=== PATIENT | male | born 1990 | race African-American/Black ===

== ENCOUNTER 2016-04-05 03:27 | Emergency (ER) | payer SELFPAY ==
[~2016-04-05] VITALS: Ht 172.7 cm; Wt 113.4 kg
--- NOTE | 2016-04-05 03:58 | PHYS DOC ---
Past Medical History Past Medical History: Schizophrenia Past Surgical History: No Surgical History Alcohol Use: Occasionally Drug Use: Cocaine, Marijuana Adult General Chief Complaint Chief Complaint: ALCOHOL INTOXICATION HPI HPI This is a 25-year-old male with known history of schizophrenia but no other significant past medical history presents after having what he states to be multiple it's of vodka and 2 beers, marijuana and cocaine just prior to arrival. Patient states he just recently started using marijuana this week. He states tonight after having his alcohol he developed some significant shortness of breath and feeling as though he may . Currently he states he feels improved and is in no distress at this time. He is speaking in complete sentences and in no acute distress. He denies any suicidal or homicidal ideation. Review of Systems Review of Systems Constitutional: Denies fever or chills [] Eyes: Denies change in visual acuity, redness, or eye pain [] HENT: Denies nasal congestion or sore throat [] Respiratory: Denies cough, has shortness of breath [] Cardiovascular: No additional information not addressed in HPI [] GI: Denies abdominal pain, nausea, vomiting, bloody stools or diarrhea [] : Denies dysuria or hematuria [] Musculoskeletal: Denies back pain or joint pain [] Integument: Denies rash or skin lesions [] Neurologic: Denies headache, focal weakness or sensory changes [] Endocrine: Denies polyuria or polydipsia [] Current Medications Current Medications Current Medications Medications (Trade) Dose Ordered Sig/Danita Start Time Stop Time Status Last Admin Dose Admin Multivitamins/ Minerals/Folic Acid/Thiamine HCl/ Sodium Chloride (Infuvite Adult/ Iv Sodium Chloride 0.9% 1000ml Bag) 1,011.2 ml @ 1,000 mls/ hr 1X ONCE 04/05/16 04:00 04/05/16 05:00 DC 04/05/16 04:07 1,000 MLS/HR Allergies Allergies Allergies Coded Allergies Type Severity Reaction Last Updated Verified No Known Drug Allergies 12/06/13 No Physical Exam Physical Exam Constitutional: Well developed, well nourished, no acute distress, non-toxic appearance. [] HENT: Normocephalic, atraumatic, bilateral external ears normal, oropharynx moist, no oral exudates, nose normal. [] Eyes: PERRLA, EOMI, conjunctiva normal, no discharge. [] Neck: Normal range of motion, no tenderness, supple, no stridor. [] Cardiovascular:Heart rate tachycardic with regular rhythm, no murmur [] Lungs & Thorax: Bilateral breath sounds clear to auscultation [] Abdomen: Bowel sounds normal, soft, no tenderness, no masses, no pulsatile masses. [] Skin: Warm, dry, no erythema, no rash. [] Back: No tenderness, no CVA tenderness. [] Extremities: No tenderness, no cyanosis, no clubbing, ROM intact, no edema. [] Neurologic: Alert and oriented X 3, normal motor function, normal sensory function, no focal deficits noted. [] Psychologic: Affect normal, judgement normal, mood normal. [] Current Patient Data Vital Signs Vital Signs Date Time Temp Pulse Resp B/P Pulse Ox O2 Delivery O2 Flow Rate FiO2 04/05/16 04:30 114 14 140/78 97 Room Air 04/05/16 03:29 98.2 98.2 Lab Values Laboratory Tests Test 04/05/16 03:50 04/05/16 04:00 White Blood Count 5.8x10^3/uL (4.0-11.0) Red Blood Count 5.41x10^6/uL (4.30-5.70) Hemoglobin 14.5g/dL (13.0-17.5) Hematocrit 43.1% (39.0-53.0) Mean Corpuscular Volume 80fL (79-100) Mean Corpuscular Hemoglobin 27pg (25-35) Mean Corpuscular Hemoglobin Concent 34g/dL (31-37) Red Cell Distribution Width 15.3% (11.5-14.5) H Platelet Count 343x10^3/uL (140-400) Neutrophils (%) (Auto) 60% (31-73) Lymphocytes (%) (Auto) 30% (24-48) Monocytes (%) (Auto) 8% (0-9) Eosinophils (%) (Auto) 0% (0-3) Basophils (%) (Auto) 1% (0-3) Neutrophils # (Auto) 3.5x10^3uL (1.8-7.7) Lymphocytes # (Auto) 1.8x10^3/uL (1.0-4.8) Monocytes # (Auto) 0.5x10^3/uL (0.0-1.1) Eosinophils # (Auto) 0.0x10^3/uL (0.0-0.7) Basophils # (Auto) 0.0x10^3/uL (0.0-0.2) Sodium Level 140mmol/L (136-145) Potassium Level 3.4mmol/L (3.5-5.1) L Chloride Level 102mmol/L (98-107) Carbon Dioxide Level 24mmol/L (21-32) Anion Gap 14 (6-14) Blood Urea Nitrogen 7mg/dL (8-26) L Creatinine 1.4mg/dL (0.7-1.3) H Estimated GFR (Cockcroft-Gault) 75.3 Glucose Level 104mg/dL (70-99) H Calcium Level 9.3mg/dL (8.5-10.1) Troponin I Quantitative < 0.017ng/mL (0.000-0.055) Salicylates Level < 2.8mg/dL (2.8-20.0) L Salicylate Last Dose Date Salicylate Last Dose Time Acetaminophen Level < 2mcg/ml (10-30) L Acetaminophen Last Dose Date Acetaminophen Last Dose Time Ethyl Alcohol Level < 10mg/dL (0-10) Urine Opiates Screen Neg (NEG) Urine Methadone Screen Neg (NEG) Urine Barbiturates Neg (NEG) Urine Phencyclidine Screen Neg (NEG) Urine Amphetamine/Methamphetamine Neg (NEG) Urine Benzodiazepines Screen Neg (NEG) Urine Cocaine Screen Pos (NEG) Urine Cannabinoids Screen Pos (NEG) Urine Ethyl Alcohol Neg (NEG) Laboratory Tests 04/05/16 03:50 Laboratory Tests 04/05/16 03:50 EKG EKG EKG as interpreted by me shows a sinus tachycardia with a rate of 123 bpm. There are no acute ST findings. There are no obvious signs of ischemia on this EKG. Radiology/Procedures Radiology/Procedures [] Course & Med Decision Making Course & Med Decision Making Pertinent Labs and Imaging studies reviewed. (See chart for details) 25-year-old male who has significant coingestion of marijuana, ethanol and cocaine will be given a banana bag and will have full laboratory workup drawn. At this time, his EKG shows a sinus tachycardia but no other acute findings. He' ll be observed in the department for several hours and reassessed multiple times. I counseled him at length that he must stop abusing drugs and alcohol and he is understanding of this. Laboratory workup is unremarkable. His urine does indicate evidence of cocaine and marijuana. Serum ethanol level was less than 10. He was given a banana bag and his tachycardia essentially resolved. His pulse ox is 99% on room air. I'll be discharging him home in of instructing him to avoid any illicit drug use and to follow up closely with his primary doctor. He states he feels much improved upon my final assessment and is very agreeable to this plan. His symptoms are likely cocaine induced. Dragon Disclaimer Dragon Disclaimer This electronic medical record was generated, in whole or in part, using a voice recognition dictation system. Departure Departure Impression: Primary Impression: Cocaine abuse Additional Impression: Marijuana abuse Disposition: 01 HOME, SELF-CARE Admitting Physician: Other Condition: STABLE Patient Instructions: Cocaine Abuse-Brief Additional Instructions: Please avoid abusing any drugs and avoid taking cocaine. Continue to drink plenty of fluids and rest. Return to the ER if you develop any worsening of your symptoms. Follow up with your primary doctor in the next 1-2 if your symptoms should persist. Problem Qualifiers SUZETTE SNIDER DO Apr 05, 2016 03:58
[2016-04-05 04:00] LABS: BASO % 1 % (0-3); EOS % 0 % (0-3); HEMATOCRIT 43.1 % (39.0-53.0); HEMOGLOBIN 14.5 g/dL (13.0-17.5); LYMPH # 1.8 x10^3/uL (1.0-4.8); LYMPH % 30 % (24-48); MEAN CORPUSCULAR HEMOGLOBIN 27 pg (25-35); MEAN CORPUSCULAR HGB CONC 34 g/dL (31-37); MEAN CORPUSCULAR VOLUME 80 fL (79-100); MONO % 8 % (0-9); NEUT % 60 % (31-73); PLATELET COUNT 343 x10^3/uL (140-400); RED BLOOD COUNT 5.41 x10^6/uL (4.30-5.70); RED CELL DISTRIBUTION WIDTH 15.3 % (11.5-14.5); WHITE BLOOD COUNT 5.8 x10^3/uL (4.0-11.0)
[2016-04-05] MEDS ORDERED: MVI, ADULT NO.4 WITH VIT K 10 ML, FOLIC ACID 1 MG, THIAMINE 100 MG in IV NORMAL SALINE ... IV ONE ×4 (04:00)
[2016-04-05 04:13] LABS: CALCIUM 9.3 mg/dL (8.5-10.1); CREATININE 1.4 mg/dL (0.7-1.3); GFR 75.3; POTASSIUM 3.4 mmol/L (3.5-5.1)
[2016-04-05 04:16] LABS: ETHANOL < 10 mg/dL (0-10)
[2016-04-05 04:24] LABS: BARBITURATES NEG (NEG); BENZODIAZEPINES NEG (NEG); CANNABINOIDS POS (NEG); COCAINE POS (NEG); ETHANOL, URINE NEG (NEG); METHADONE NEG (NEG); OPIATES NEG (NEG); PHENCYCLIDINE NEG (NEG)
[2016-04-05 05:57] VITALS: BP 131/81
--- NOTE | 2016-04-05 07:38 | EKG ---
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
== END 2016-04-05 06:07 | disposition home or self-care (01) ==
LOC: ER 03:27
DX: F14.10 Cocaine abuse, uncomplicated (principal); R06.02 Shortness of breath; F20.9 Schizophrenia, unspecified; F10.129 Alcohol abuse with intoxication, unspecified
CPT/HCPCS: 36415; 80048; 84484; 85027; 93005; 96365; 99285; G0480; G0481; G6038; J7030; 80196

== ENCOUNTER 2016-08-13 17:12 | Emergency (ER) | payer SELFPAY ==
[~2016-08-13] VITALS: Ht 180.3 cm; Wt 117.0 kg
[2016-08-13 17:40] VITALS: BP 138/79
--- NOTE | 2016-08-13 18:05 | PHYS DOC ---
Past Medical History Past Medical History: Schizophrenia Past Surgical History: No Surgical History Alcohol Use: Occasionally Drug Use: Cocaine, Marijuana Adult General Chief Complaint Chief Complaint: EYE PROBLEMS HPI HPI Patient is a 26 year old female presents emergency department stating that he' s been having swelling to his right upper eyelid for the last few days. He states that is progressively gotten worse. He denies any drainage or discharge from the eye itself. He denies any visual difficulty. He denies any trauma or injury to the eye. He denies any use of contact lenses. Review of Systems Review of Systems Constitutional: Denies fever or chills [] Eyes: Denies change in visual acuity, redness, or eye pain. Complaint of right upper eyelid swelling HENT: Denies nasal congestion or sore throat [] Respiratory: Denies cough or shortness of breath [] Cardiovascular: No additional information not addressed in HPI [] GI: Denies abdominal pain, nausea, vomiting, bloody stools or diarrhea [] : Denies dysuria or hematuria [] Musculoskeletal: Denies back pain or joint pain [] Integument: Denies rash or skin lesions [] Neurologic: Denies headache, focal weakness or sensory changes [] Endocrine: Denies polyuria or polydipsia [] Allergies Allergies Allergies Coded Allergies Type Severity Reaction Last Updated Verified No Known Drug Allergies 12/06/13 No Physical Exam Physical Exam Constitutional: Well developed, well nourished, no acute distress, non-toxic appearance. [] HENT: Normocephalic, atraumatic, bilateral external ears normal, oropharynx moist, no oral exudates, nose normal. [] Eyes: PERRLA, EOMI, conjunctiva normal, patient noted to have yellow crustiness around the outer part of the eyelids. Right upper eyelid appears to be swollen and edematous and slightly red. Neck: Normal range of motion, no tenderness, supple, no stridor. [] Cardiovascular: Patient pink warm and dry Lungs & Thorax: No respiratory distress noted Skin: Warm, dry, no erythema, no rash. [] Back: No tenderness Extremities: No tenderness, no cyanosis, no clubbing, ROM intact, no edema. [] Neurologic: Alert and oriented X 3, normal motor function, normal sensory function, no focal deficits noted. [] Psychologic: Affect normal, judgement normal, mood normal. [] Current Patient Data Vital Signs Vital Signs Date Time Temp Pulse Resp B/P (MAP) Pulse Ox O2 Delivery O2 Flow Rate FiO2 08/13/16 17:40 97.8 102 16 97 Room Air 97.8 EKG EKG [] Radiology/Procedures Radiology/Procedures [] Course & Med Decision Making Course & Med Decision Making Pertinent Labs and Imaging studies reviewed. (See chart for details) Patient will be provided with clindamycin for periorbital cellulitis. Recommended following up with primary care physician return back to emergency department in the next 3-5 days if the area does not look better. Patient was instructed to use warm moist packs to the eye. Patient agrees with discharge instructions treatment regimens and follow-up recommendations. Signs symptoms to return back to emergency department as been provided. Patient agrees with discharge instructions treatment regimens and follow-up recommendations. [] Dragon Disclaimer Dragon Disclaimer This electronic medical record was generated, in whole or in part, using a voice recognition dictation system. Departure Departure Impression: Primary Impression: Periorbital cellulitis of right eye Disposition: HOME, SELF-CARE Condition: STABLE Referrals: NO PCP (PCP) Patient Instructions: Periorbital Cellulitis, Pediatric Additional Instructions: Activity as tolerated. Medication as prescribed. Tylenol or ibuprofen for pain and discomfort. Warm moist packs to the right eye 4-5 times a day. Good handwashing is essential. Follow-up with her primary care physician in next 3-5 days. Return back to emergency prior signs and symptoms of become worse. Scripts Clindamycin Hcl (CLINDAMYCIN HCL) 150 Mg Capsule 3 CAP PO TID for 10 Days, CAP Prov: NAVI LOZA APRN 08/13/16 NAVI LOZA APRN Aug 13, 2016 18:05
[2016-08-13] MEDS ORDERED: CLIN150C14 PO (18:07)
== END 2016-08-13 18:19 | disposition home or self-care (01) ==
LOC: ER 17:12
DX: L03.213 Periorbital cellulitis (principal); F12.10 Cannabis abuse, uncomplicated; F14.10 Cocaine abuse, uncomplicated; F20.9 Schizophrenia, unspecified
CPT/HCPCS: 99283

== ENCOUNTER 2019-08-09 10:55 | Emergency (ER) | payer SELFPAY ==
[~2019-08-09] VITALS: Ht 177.8 cm; Wt 91.4 kg
[~2019-08-09 10:55] MED LIST: CLIN150C14 PO
[2019-08-09] MEDS ORDERED: IV NORMAL SALINE 1000ML BAG 1,000 ML IV ONE ×2 (11:30→12:30)
[2019-08-09] MEDS ORDERED: ONDANSETRON PF 4 MG/2 ML VIAL. IV ONE (11:30)
[2019-08-09] MEDS ORDERED: FAMOTIDINE 20 MG/2 ML VIAL IVP ONE (11:30)
[2019-08-09 11:38] LABS: BASO % 0 % (0-3); EOS % 0 % (0-3); HEMATOCRIT 48.3 % (39.0-53.0); HEMOGLOBIN 16.8 g/dL (13.0-17.5); LYMPH # 0.9 x10^3/uL (1.0-4.8); LYMPH % 7 % (24-48); MEAN CORPUSCULAR HEMOGLOBIN 28 pg (25-35); MEAN CORPUSCULAR HGB CONC 35 g/dL (31-37); MEAN CORPUSCULAR VOLUME 80 fL (79-100); MONO # 1.6 x10^3/uL (0.0-1.1); MONO % 13 % (0-9); NEUT # 10.4 x10^3/uL (1.8-7.7); NEUT % 80 % (31-73); PLATELET COUNT 252 x10^3/uL (140-400); RED BLOOD COUNT 6.06 x10^6/uL (4.30-5.70); RED CELL DISTRIBUTION WIDTH 13.6 % (11.5-14.5); WHITE BLOOD COUNT 12.9 x10^3/uL (4.0-11.0)
--- NOTE | 2019-08-09 11:40 | PHYS DOC ---
Past Medical History Past Medical History: Depression, Schizophrenia Past Surgical History: No Surgical History Smoking Status: Current Every Day Smoker Alcohol Use: Occasionally Drug Use: Cocaine, Marijuana General Adult EDM: Chief Complaint: NAUSEA/VOMITING/DIARRHA HPI: HPI: Patient is a 29 year old male who presents with nausea/vomiting/diarrhea that started last night after eating a gas station burrito. He is having generalized abdominal cramping pain that is intermittent, he rates his pain 10/10, there is no radiation of pain, no aggravating factors, nothing makes pain better. He has not taken anything at home for treatment of symptoms. Patient reports vomiting 4 times today. He is able to drink fluids but reports not eating today due to decreased appetite. Review of Systems: Review of Systems: Constitutional: Denies fever or chills. [] Eyes: Denies change in visual acuity. [] HENT: Denies nasal congestion or sore throat. [] Respiratory: Denies cough or shortness of breath. [] Cardiovascular: Denies chest pain or edema. [] GI: Denies bloody stools, see HPI [] : Denies dysuria. [] Musculoskeletal: Denies back pain or joint pain. [] Integument: Denies rash. [] Neurologic: Denies headache, focal weakness or sensory changes. [] Lymphatic: Denies swollen glands. [] Psychiatric: Denies depression or anxiety. [] Heart Score: Risk Factors: Risk Factors: DM, Current or recent (<one month) smoker, HTN, HLP, family history of CAD, obesity. Risk Scores: Score 0 - 3: 2.5% MACE over next 6 weeks - Discharge Home Score 4 - 6: 20.3% MACE over next 6 weeks - Admit for Clinical Observation Score 7 - 10: 72.7% MACE over next 6 weeks - Early Invasive Strategies Current Medications: Current Medications Medications (Trade) Dose Ordered Sig/Danita Start Time Stop Time Status Last Admin Dose Admin Famotidine (Pepcid Vial) 20 mg 1X ONCE 08/09/19 11:30 08/09/19 11:31 DC Ondansetron HCl (Zofran) 4 mg 1X ONCE 08/09/19 11:30 08/09/19 11:31 DC Sodium Chloride 1,000 ml @ 1,000 mls/hr 1X ONCE 08/09/19 11:30 08/09/19 12:29 08/09/19 11:28 1,000 MLS/HR Allergies: Allergies: Allergies Coded Allergies Type Severity Reaction Last Updated Verified No Known Drug Allergies 12/06/13 No Physical Exam: PE: Constitutional: Well developed, well nourished, no acute distress, non-toxic appearance. [] HENT: Normocephalic, atraumatic, bilateral external ears normal, oropharynx moist, nose normal. [] Eyes: PERRLA, EOMI, conjunctiva normal, no discharge. [] Neck: Normal range of motion, no tenderness, no stridor. [] Cardiovascular:Heart rate regular rhythm, no murmur [] Lungs & Thorax: Bilateral breath sounds clear to auscultation [] Abdomen: Bowel sounds normal, soft, no tenderness, no masses, no pulsatile masses. [] Skin: Warm, dry, no erythema, no rash. [] Back: No tenderness[] Extremities: No tenderness, no cyanosis, no clubbing, ROM intact, no edema. [] Neurologic: Alert and oriented X 3, normal motor function, no focal deficits noted. [] Psychologic: Affect normal, judgement normal, mood normal. [] Current Patient Data: Vital Signs: Vital Signs Date Time Temp Pulse Resp B/P (MAP) Pulse Ox O2 Delivery O2 Flow Rate FiO2 08/09/19 11:10 98.6 79 138/83 (101) 95 Room Air 98.6 EKG: EKG: [] Radiology/Procedures: Radiology/Procedures: [] Course & Med Decision Making: Course & Med Decision Making Pertinent Labs and Imaging studies reviewed. (See chart for details) Patient is a 29 year old male who is being seen for n/v/d and generalized abdominal cramping after eating a gas station burrito last night. Work up will include: CBC, CMP, lipase, UA. Treatment includes: 4mg of Zofran, 20mg of Pepcid, 1L of NS. CBC reveals a white blood cell count of 12.9, red both blood cell count of 6.06, otherwise unremarkable; CMP reveals a sodium of 131, potassium of 3.3, chloride of 96, glucose of 124 otherwise unremarkable; UA is unremarkable. Patient reported return of nausea after the initial dose of Zofran, he was given 10 mg of IV Compazine. Patient reported feeling better after his medications, vital signs are stable. Patient would like to go home. Will prescribe Zofran and Pepcid. Encouraged patient to follow a clear liquid diet for 24 hours then advance to bland foods and as tolerated. Patient verbalized an understanding of home care, medications, follow-up, and return to ED instructions and was in agreement with the plan of care. [] Lalo Disclaimer: Dragmarcela Disclaimer: This electronic medical record was generated, in whole or in part, using a voice recognition dictation system. Departure Departure Impression: Primary Impression: Nausea, vomiting, and diarrhea Additional Impression: Dehydration Disposition: HOME, SELF-CARE Condition: STABLE Referrals: NO PCP (PCP) Patient Instructions: Diet for Diarrhea, Adult, Nausea and Vomiting, [id number] Additional Instructions: Fill prescriptions and use them as directed. Recommend clear fluids for the next 24 hours. Then you may advance to bland foods such as bananas, rice, applesauce, and dry toast. Follow-up with your primary care doctor in the next 1-2 days. Return to the emergency room if your symptoms worsen. Scripts Famotidine (PEPCID) 20 Mg Tablet 20 MG PO HS for 7 Days, #7 TAB 0 Refills Prov: VIVIAN LONG APRN 08/09/19 Ondansetron (ONDANSETRON ODT) 4 Mg Tab.rapdis 1 TAB PO PRN Q6-8HRS PRN for NAUSEA/VOMITING for 4 Days, #16 TAB 0 Refills Prov: VIVIAN LONG APRN 08/09/19 Justicifation of Admission Dx: Justifications for Admission: Justification of Admission Dx: N/A VIVIAN LONG APRN Aug 09, 2019 11:40
[2019-08-09 11:42] LABS: BILIRUBIN,URINE SMALL (NEG); CLARITY,URINE CLEAR; COLOR,URINE AMBER; NITRITE,URINE NEGATIVE (NEG); PH,URINE 5.5 (<5.0-8.0); PROTEIN,URINE 100 mg/dL (NEG-TRACE); UROBILINOGEN,URINE 0.2 mg/dL (0.2 mg/dL)
[2019-08-09 11:54] LABS: CALCIUM 8.6 mg/dL (8.5-10.1); CREATININE 1.3 mg/dL (0.7-1.3); GFR 79.5; POTASSIUM 3.3 mmol/L (3.5-5.1)
[2019-08-09 11:56] LABS: BACTERIA,URINE FEW /HPF (0-FEW); SQUAMOUS EPITHELIAL CELL,UR FEW /LPF
[2019-08-09 12:00] LABS: ALBUMIN 3.7 g/dL (3.4-5.0); ALBUMIN/GLOBULIN RATIO 0.9 (1.0-1.7); TOTAL BILIRUBIN 0.3 mg/dL (0.2-1.0); TOTAL PROTEIN 7.7 g/dL (6.4-8.2)
[2019-08-09] MEDS ORDERED: POTASSIUM CHLORIDE 20 MEQ TABLET.ER. PO ONE (12:30)
[2019-08-09] MEDS ORDERED: PROCHLORPERAZINE 10 MG/2 ML VIAL. IV ONE (14:00)
[2019-08-09] MEDS ORDERED: ONDA4TAB12 PO (14:43)
[2019-08-09] MEDS ORDERED: FAMO-63 PO (14:43)
[2019-08-09 15:08] VITALS: BP 109/59
== END 2019-08-09 15:22 | disposition home or self-care (01) ==
LOC: ER 10:55
DX: R11.2 Nausea with vomiting, unspecified (principal); R19.7 Diarrhea, unspecified; E86.0 Dehydration; R10.84 Generalized abdominal pain; F20.9 Schizophrenia, unspecified; F17.200 Nicotine dependence, unspecified, uncomplicated
CPT/HCPCS: 36415; 80053; 81001; 83690; 85025; 96361; 96374; 96375; 99285; J0780; J2405; J3490; J7030

== ENCOUNTER 2019-08-21 15:00 | Emergency (ER) | payer SELFPAY ==
[~2019-08-21 15:00] MED LIST changes: +FAMO-63 PO; +ONDA4TAB12 PO
== END 2019-08-21 15:53 | disposition left against medical advice (07) ==
LOC: ER 15:00
DX: R30.9 Painful micturition, unspecified (principal); Z53.21 Procedure and treatment not carried out due to patient leaving prior to being seen by health care provider